=== PATIENT | female | born 2005 | race Caucasian/White ===

== ENCOUNTER 2024-01-07 00:01 | Emergency (ER) | payer OTHER ==
[2024-01-07 00:09] VITALS: RESP 20; BMI 21.3
[2024-01-07 01:03] VITALS: BP 110/68; PULSE 78; TEMP 98.3
[2024-01-07 01:22] LABS: CALCIUM 9.1 mg/dL (8.5-10.1)
[2024-01-07 01:23] LABS: ALBUMIN 4.1 g/dl (3.4-5.0); BLOOD UREA NITROGEN 11.9 mg/dL (7-18); MAGNESIUM 2.1 mg/dL (1.8-2.4)
[2024-01-07 01:26] LABS: CREATININE 0.8 mg/dL (0.55-1.3)
[2024-01-07 01:27] LABS: BILIRUBIN,TOTAL 0.4 mg/dL (0.2-1)
[2024-01-07 01:28] LABS: TOT PROT 7.7 g/dl (6.4-8.2)
[2024-01-07 02:29] LABS: BASO % 0.6 % (0-2.0); EOS % 2.9 % (0-4.5); HEMATOCRIT 38.2 % (32.4-45.2); HEMOGLOBIN 13.1 GM/dL (10.7-15.3); LYMPH % 32.5 % (8-40); MCHC 34.4 g/dl (32.0-36.0); MEAN CELL VOLUME 93.2 fl (80-96); MEAN PLT VOLUME 7.8 fl (7.5-11.1); MONO % 7.9 % (3.8-10.2); NEUT % 56.1 % (42.8-82.8); PLATELET COUNT 336 10^3/uL (134-434); RDW 12.5 % (11.6-15.6); WHITE BLOOD COUNT 8.1 K/mm3 (4.0-10.0)
[2024-01-07 03:08] LABS: EPI CELLS 2 /uL (0-25.1); HYALINE CASTS 1 /uL (0-3.1); PH,URINE 5.5 (5.0-8.0); URINE APPEARANCE CLOUDY; URINE BACTERIA >9,000 /uL (0-1359); URINE BILIRUBIN NEGATIVE (NEGATIVE); URINE COLOR YELLOW; URINE GLUCOSE (UA) NEGATIVE (NEGATIVE); URINE KETONE NEGATIVE (NEGATIVE); URINE LEUK ESTERASE 3+ (NEGATIVE); URINE NITRITE NEGATIVE (NEGATIVE); URINE PROTEIN NEGATIVE (NEGATIVE); URINE RBC 16 /uL (0-23.9); URINE UROBILINOGEN 0.2 mg/dL (0.2-1.0); URINE WBC 678 /uL (0-25.8)
[2024-01-07] MEDS ORDERED: CEPHALEXIN MONOHYDRATE 500 MG CAPSULE (UD) ONE (03:47)
[2024-01-07] MEDS: CEPHALEXIN MONOHYDRATE 500 MG CAPSULE (UD) PO ONE (03:56)
== END 2024-01-07 04:34 | disposition home or self-care (01) ==
LOC: JER 00:01
DX: R10.2 Pelvic and perineal pain (principal); R30.0 Dysuria; N89.8 Other specified noninflammatory disorders of vagina; N39.0 Urinary tract infection, site not specified
CPT/HCPCS: 76830-TC; 80053; 81003; 83735; 84703; 85025; 87086; 87186; 99284-25